=== PATIENT | female | born 2000 | race Caucasian/White ===

== ENCOUNTER → 2020-05-04 | Outpatient (CLI) | payer BC | LOC: ZCOL.LAB 10:49 | DX: U07.1 COVID-19 (principal) ==

== ENCOUNTER 2020-05-13 22:21 | Emergency (ER) | payer BC ==
[~2020-05-13] VITALS: Ht 170.2 cm; Wt 59.1 kg
[2020-05-13 22:54] VITALS: TEMP 101.9
[2020-05-14 00:10] VITALS: BP 116/61; PULSE 66
== END 2020-05-14 00:32 | disposition home or self-care (01) ==
LOC: COL.ER 22:21
DX: U07.1 COVID-19 (principal)
CPT/HCPCS: J2405; J7030